=== PATIENT | female | born 1975 | race Caucasian/White ===

== ENCOUNTER 2022-06-21 08:01 | Outpatient (CLI) | payer OTHER, SELFPAY ==
--- NOTE | ~2022-06-21 | US_ITS ---
EXAMINATION: US right upper quadrant DATE: 06/21/2022 08:36 INDICATION: R10.9 - Unspecified abdominal pain TECHNIQUE: Multiple grayscale and Doppler ultrasound images of the right upper quadrant were obtained . COMPARISON: None available. FINDINGS: The visualized portions of the pancreas are normal. The liver is normal with normal echogen icity and echotexture. No surface nodularity. Normal hepatopetal flow in the main portal vein. The ga llbladder is normal with no abnormal wall thickening, pericholecystic fluid or stones. The common maliha e duct measures 4 mm. There was no sonographic Leahy sign. IMPRESSION: Normal right upper quadrant ultrasound findings. Reviewed, dictated and finalized at location K.
== END 2022-06-21 08:02 | disposition home or self-care (01) ==
PROVIDERS: PCP Emergency Medicine; Referring Provider Nurse Practitioner Family; Visit Provider Emergency Medicine
DX: R10.9 Unspecified abdominal pain (principal)
CPT/HCPCS: 76705

== ENCOUNTER 2022-07-05 00:56 | Day surgery (SDC) | payer OTHER, SELFPAY ==
[2022-06-28 14:43] VITALS: BMI 19.5
--- NOTE | 2022-07-04 13:08 | P.PNAN_ITS ---
Anes - Initial Pre Proc Eval Procedure: Operation Date: 07/05/22 10:30 Proposed Procedures p Esophagogastroduodenoscopy - Patricio White MD Date/Time: 07/04/22 13:08 Surgeon: Patricio White MD Pre Op Diagnosis: RUQP Patient Data Age: 47 Gender: F Height: 1.55 m Weight: 47 kg Allergies Allergy/AdvReac Type Severity Reaction Status Date / Time hydrocodone Allergy Mild Migraine Verified 07/05/22 09:23 latex Allergy Mild Itching Verified 07/05/22 09:23 venom-wasp Allergy Swelling Verified 07/05/22 09:23 Home Medications Medication Instructions Recorded Confirmed Type albuterol sulfate 90 mcg/actuation 1 inh inhalation Q4H PRN shortness 05/09/22 06/28/22 Rx aerosol inhaler of breath or wheezing #8.5 grams cholecalciferol (vitamin D3) 1,250 1,250 mcg PO WEEKLY #4 caps 05/17/22 06/28/22 Rx mcg (50,000 unit) capsule lactobacillus combination no.4 3 3,000 mmu cells PO DAILY 06/14/22 06/28/22 History billion cell capsule (Probiotic) multivitamin 1 tablet PO DAILY 06/14/22 06/28/22 History dicyclomine 10 mg capsule 10 mg PO TID #90 caps 06/23/22 06/28/22 Rx alprazolam 0.25 mg tablet 0.25 mg PO HS 06/28/22 06/28/22 History Patient hx anesthesia problems: none Family hx anesthesia problems: none Results Review: All pre-operative results and documents have been reviewed as part of the pre- operative evaluation. [facility] Past Medical History Medical History Asthma Fatigue Right upper quadrant pain Surgical History Surgical History S/P cubital tunnel release Family History Family History Mother Family history of chronic obstructive pulmonary disease Social History Social History Smoking status: Former smoker Tobacco type: cigarettes Second hand tobacco smoke exposure: No Smoking end date: 03/20/15 Alcohol intake: current Substance use: current Substance use type: marijuana Last use: Daily Living arrangements: with family Spiritual care concerns: No Anes - Eval Final PreProcedure Day of Procedure 07/04/22 13:08 Patient weight: normal Heart: regular rate and rhythm Lungs: clear to auscultation and normal air movement Airway: Mallampati scale class II Neurological: alert and oriented Last oral intake: >/= 8 hours ASA classification: III Emergent: no Anesthetic plan: proceed Anesthesia type and monitoring: general GIVS and standard monitoring Results Review: All pre-operative results and documents have been reviewed as part of the pre- operative evaluation. Informed Consent: The patient's anesthetic plan and its attendant risks and benefits were discussed with the patient/family/POA. Questions were solicited and answers provided to the satisfaction of the patient/family/POA.
[2022-07-05 09:15] VITALS: BP 96/57; PULSE 63; RESP 18; TEMP 36.4; O2SAT 100; BMI 19.0
[2022-07-05] MEDS: LACTATED RINGERS 1,000 ML 150 ML IV CONT (09:42)
--- NOTE | 2022-07-05 10:11 | WPDHPUPDATE1 ---
History and Physical Update Update Date/Time: 07/05/22 10:11 Patient reports previous right upper quadrant pain has improved. Previous pain was crampy in nature improved with dicyclomine. Appeared to also improve after a bowel movement. It lasted for approximately 1 week 2 weeks ago and is now resolved. EGD requested to be certain all is okay with the upper GI tract. History and Physical has been reviewed, including an updated exam of the patient. There are NO changes in the patient's condition. Risks, benefits, and alternatives have been discussed and questions answered. Patient agrees to proceed with procedure.
[2022-07-05 10:28] VITALS: BP 108/66; PULSE 62; RESP 14; O2SAT 96
[2022-07-05 10:38] VITALS: BP 110/56; PULSE 64; RESP 14; O2SAT 98
[2022-07-05 10:48] VITALS: BP 117/71; PULSE 636; RESP 20; O2SAT 97
== END 2022-07-05 11:00 | disposition home or self-care (01) ==
PROVIDERS: PCP Emergency Medicine; Visit Provider Internal Medicine Gastroenterology
PROC: 0DJ08ZZ Inspection of Upper Intestinal Tract, Via Natural or Artificial Opening Endoscopic (ICD-10-PCS; CPT 43235; principal; 2022-07-05 10:30)
DX: R10.11 Right upper quadrant pain (principal); J45.909 Unspecified asthma, uncomplicated; Z87.891 Personal history of nicotine dependence; F12.90 Cannabis use, unspecified, uncomplicated; Z79.51 Long term (current) use of inhaled steroids
CPT/HCPCS: 43239; 87081; J2704; J7120

== ENCOUNTER 2022-10-19 15:04 | Emergency (ER) | payer OTHER, SELFPAY ==
--- NOTE | 2022-10-19 15:10 | ED.SKABFB ---
HPI - Skin/Abscess/Foreign Bdy General Chief complaint: Skin/Abscess/Foreign Body Stated complaint: RASH Time Seen by Provider: 10/19/22 15:10 Source: patient and RN notes reviewed History of Present Illness HPI narrative: Patient is a 47-year-old female who presents to urgent care with complaints of a rash to the buttocks, abdomen, bilateral lower and upper extremities and the neck. Patient states that she noticed it a few days ago and has been treating it with [id number] medications. Patient states she has been outside doing yd work off and on and no one in the house has had the rash. Patient states they do have a large dog that sleeps in the bed and she assumed was fleas. However, her has not had any issues with bug bites. Patient states that it has been spreading and increasing in itch. No other acute complaints. No acute distress noted. Patient aware of the care. Some parts of this dictation were generated by voice recognition software and may contain typographical and/or grammatical inaccuracies. Related Data Home Medications Medication Instructions Recorded Confirmed lactobacillus combination no.4 3 3,000 mmu cells PO DAILY 06/14/22 10/19/22 billion cell capsule (Probiotic) multivitamin 1 tablet PO DAILY 06/14/22 10/19/22 Allergies Allergy/AdvReac Type Severity Reaction Status Date / Time hydrocodone Allergy Mild Migraine Verified 10/19/22 15:12 latex Allergy Mild Itching Verified 10/19/22 15:12 venom-wasp Allergy Swelling Verified 10/19/22 15:12 Review of Systems Review of Systems: CONSTITUTIONAL: Denies fever, chills, or sweats. EYES: Denies visual changes, redness, or discharge. ENT: Denies rhinorrhea, congestion, sore throat, or otalgia. CARDIOVASCULAR: Denies chest pain, palpitations, or edema. RESPIRATORY: Denies cough or dyspnea. GASTROINTESTINAL: Denies abdominal pain, nausea, vomiting, or diarrhea. GENITOURINARY: Denies dysuria or hematuria. SKIN: Reports have a all over rash to bilateral lower extremities, abdomen, buttocks, bilateral upper extremities and neck MUSCULOSKELETAL: Denies back pain, joint pain, or myalgia. NEUROLOGIC: Denies headache, numbness, or weakness. All other systems reviewed are negative, except as documented in HPI. [facility] Past Medical History Medical History Asthma Fatigue Right upper quadrant pain Surgical History Surgical History S/P cubital tunnel release Family History Family History Mother Family history of chronic obstructive pulmonary disease Social History Social History Smoking status: Former smoker Tobacco type: cigarettes Second hand tobacco smoke exposure: No Smoking end date: 03/20/15 Alcohol intake: current Substance use: current Substance use type: marijuana Last use: Daily Living arrangements: with family Spiritual care concerns: No Comments At the time of my signature, I reviewed and agree with the nursing past medical, surgical, social, and family history. There is no relevant family history pertinent to the patient complaint. Exam Narrative: GENERAL: This is a well-nourished, well-developed patient, in no apparent distress. HEAD: normocephalic, atraumatic. EYES: PERRL. Sclera clear/white. Vision is grossly intact. EARS: External ears normal NOSE: External nose normal with no obvious nasal discharge, nares without redness, no rhinorrhea. THROAT: Mucous membranes moist NECK: Neck supple, SKIN: Scattered raised papular dermatitis to bilateral lower extremities, upper extremities, abdomen/buttocks and right side of the neck without any consistent pattern NEURO: awake, alert, and oriented to person, place and time. There were no obvious focal neurologic abnormalities.
[2022-10-19 15:11] VITALS: BP 114/76; PULSE 59; RESP 18; TEMP 36.8; O2SAT 100
[2022-10-19 15:14] VITALS: BP 114/76; PULSE 59; RESP 18; TEMP 36.8; O2SAT 100
== END 2022-10-19 15:39 | disposition home or self-care (01) ==
PROVIDERS: Emergency Provider Nurse Practitioner Family; PCP Emergency Medicine
DX: L25.9 Unspecified contact dermatitis, unspecified cause (principal); Z87.891 Personal history of nicotine dependence; J45.909 Unspecified asthma, uncomplicated
CPT/HCPCS: 99213; G0463

== ENCOUNTER → 2022-10-28 14:53 | Outpatient (CLI) | payer OTHER, SELFPAY ==
--- NOTE | ~2022-10-28 | MM_ITS ---
EXAMINATION: MM screening jose alejandro BI w mando HISTORY: Screening TECHNIQUE: Craniocaudal and mediolateral oblique 3-D tomosynthesis images were obtained and synthetic 2-D images were generated. CAD analysis was submitted and interpreted. COMPARISON: No prior mammogram is available for comparison at this institution. BREAST PARENCHYMAL COMPOSITION: The breasts are extremely dense, which lowers the sensitivity of mamm ography. FINDINGS: There is no evidence of suspicious mass, calcification, or architectural distortion to sugg est malignancy in either breast. There has been no suspicious interval change. IMPRESSION: 1. No mammographic evidence of malignancy. 2. Recommend routine screening mammography in one year. BI-RADS Category 1: Negative Reviewed, dictated and finalized at location A.
== END ==
PROVIDERS: PCP Obstetrics & Gynecology; Visit Provider Emergency Medicine
DX: Z12.31 Encounter for screening mammogram for malignant neoplasm of breast (principal)
CPT/HCPCS: 77063; 77067